=== PATIENT | male | born 1980 | race African-American/Black ===

== ENCOUNTER 2017-04-21 10:06 | Emergency (ER) | payer OTHER ==
[2017-04-21] MEDS ORDERED: ONDANSETRON ODT 4 MG TABLET TL STA (10:40)
[2017-04-21] MEDS ORDERED: ONDANSETRON ODT 4 MG TABLET ONE (10:50)
[2017-04-21 10:56] LABS: BASOPHILS % (AUTO) 0.6 %; EOSINOPHILS # (AUTO) 0.1 10^3/uL (0.0-0.7); EOSINOPHILS % (AUTO) 0.8 %; HCT - HEMATOCRIT 47.4 % (42.0-52.0); HGB - HEMOGLOBIN 15.9 g/dL (14.0-18.0); LYMPHOCYTES # (AUTO) 2.2 10^3/uL (1.5-3.5); MEAN CORPUSCULAR HEMOGLOBIN 28.8 pg (27.0-31.0); MEAN CORPUSCULAR HGB CONC 33.6 g/dL (32.0-36.0); MEAN CORPUSCULAR VOLUME 85.7 fL (80.0-94.0); MEAN PLATELET VOLUME 9.3 fL (7.4-11.4); MONOCYTES # (AUTO) 0.3 10^3/uL (0.0-1.0); NEUTROPHILS # (AUTO) 4.1 10^3/uL (1.5-6.6); NEUTROPHILS % (AUTO) 60.6 %; NUCLEATED RED BLOOD CELLS AUTO 0.1 /100WBC; RED BLOOD COUNT 5.52 10^6/uL (4.70-6.10); RED CELL DISTRIBUTION WIDTH 13.4 % (12.0-15.0); UNCORRECTED WHITE BLOOD COUNT 6.8 x10^3/uL; WHITE BLOOD COUNT 6.8 x10^3/uL (4.8-10.8)
[2017-04-21 11:08] LABS: ALBUMIN/GLOBULIN RATIO 1.4 (1.0-2.2); BILIRUBIN,TOTAL 0.9 mg/dL (0.2-1.0); CALCIUM 9.2 mg/dL (8.5-10.3); POTASSIUM 3.7 mmol/L (3.5-5.0); TOTAL PROTEIN 7.6 g/dL (6.7-8.2)
--- NOTE | 2017-04-21 11:28 | ED Physician Documentation ---
PD HPI ABD PAIN - Stated complaint Stated Complaint: VOMITTING, ABD PX, DIARRHEA - Chief complaint Chief Complaint: General - History obtained from History obtained from: Patient - History of Present Illness Timing - onset: Yesterday Timing - details: Still present Location: Epigastric Worsened by: Eating Associated symptoms: Nausea, Vomiting, Diarrhea, Other (Chills and myalgias.). No: Fever Similar symptoms before: Has not had sx before - Additional information Additional information: The patient is a 36-year-old male who presents with vomiting and watery diarrhea that started yesterday. He also reports upper abdominal discomfort, headache, chills, and myalgias. His symptoms are worse with food. He denies fever or dysuria. He denies history of similar symptoms in the past. His daughter was sick with similar symptoms 2 days ago, and she is now feeling better. Review of Systems Constitutional: reports: Chills, Myalgias. denies: Fever Nose: denies: Congestion Throat: denies: Sore throat Cardiac: denies: Chest pain / pressure Respiratory: denies: Dyspnea, Cough GI: reports: Abdominal Pain (epigastric), Nausea, Vomiting, Diarrhea : denies: Dysuria Skin: denies: Rash Musculoskeletal: denies: Back pain Neurologic: reports: Headache. denies: Focal weakness, Numbness PD PAST MEDICAL HISTORY - Past Medical History Past Medical History: No Endocrine/Autoimmune: None - Past Surgical History Past Surgical History: No - Present Medications Home Medications: Ambulatory Orders Medication Instructions Recorded Confirmed Promethazine [Phenergan] 25 - 50 mg PO Q6H PRN #10 tab 04/21/17 - Allergies Allergies/Adverse Reactions: Allergies Allergy/AdvReac Type Severity Reaction Status Date / Time No Known Drug Allergies Allergy Verified 04/21/17 10:17 - Social History Does the pt smoke?: Yes Smoking Status: Current every day smoker Does the pt drink ETOH?: No Does the pt have substance abuse?: No - Immunizations Immunizations are current?: Yes PD ED PE NORMAL - Vitals Vital signs reviewed: Yes (normal) - General General: Alert and oriented X 3, Well developed/nourished - HEENT HEENT: Atraumatic, EOMI, Ears normal, Moist mucous membranes, Pharynx benign - Neck Neck: Supple, no meningeal sign, No adenopathy, No JVD - Cardiac Cardiac: RRR, No murmur - Respiratory Respiratory: No respiratory distress, Clear bilaterally - Abdomen Abdomen: Normal bowel sounds, Soft, Non tender, No organomegaly - Back Back: No CVA TTP - Derm Derm: No rash - Extremities Extremities: No edema, No calf tenderness / cord - Neuro Neuro: Alert and oriented X 3, No motor deficit, Normal speech Results - Vitals Vitals: Oxygen O2 Source Room air - Labs Labs: Laboratory Tests 04/21/17 04/21/17 10:50 10:50 WBC 6.8 RBC 5.52 Hgb 15.9 Hct 47.4 MCV 85.7 MCH 28.8 MCHC 33.6 RDW 13.4 Plt Count 153 MPV 9.3 Neut # 4.1 Lymph # 2.2 [place] # 0.3 Eos # 0.1 Baso # 0.0 Absolute Nucleated RBC 0.01 Nucleated RBCs 0.1 Sodium 134 L Potassium 3.7 Chloride 101 Carbon Dioxide 25 Anion Gap 8.0 BUN 9 Creatinine 1.0 Estimated GFR (MDRD) 102 Glucose 117 H Calcium 9.2 Total Bilirubin 0.9 AST 36 ALT 42 Alkaline Phosphatase 60 Total Protein 7.6 Albumin 4.4 Globulin 3.2 Albumin/Globulin Ratio 1.4 Lipase 29 PD MEDICAL DECISION MAKING - ED course Complexity details: reviewed results, re-evaluated patient, considered differential, d/w patient ED course: The patient's presentation is most consistent with acute gastroenteritis. His presentation does not suggest invasive bacterial gastroenteritis, or a surgical abdomen. He does not appear dehydrated. Treatment in the emergency department included administration of Zofran 4 mg orally. He subsequently demonstrated the ability to drink fluids without recurrent nausea or vomiting. He is being discharged with a prescription for Phenergan. I discussed with him the expected course of illness, symptomatic treatment and outpatient follow-up, as well as potentially worrisome signs or symptoms that should prompt reevaluation in the emergency department. Departure - Departure Disposition: 01 Home, Self Care Clinical Impression: Gastroenteritis Condition: Stable Instructions: ED Gastroenteritis Viral Follow-Up: Carmine Navas MD [Physician No Access] - Prescriptions: Promethazine [Phenergan] 25 - 50 mg PO Q6H PRN #10 tab PRN Reason: Nausea / Vomiting Comments: Drink plenty of fluids. You can use Phenergan as prescribed if needed for nausea. Follow-up with your primary physician, or return to the emergency department, if you develop increasing abdominal pain, persistent vomiting, or otherwise worsening symptoms. Forms: Activity restrictions Discharge Date/Time: 04/21/17 11:48
[2017-04-21 11:48] VITALS: BP 122/71
== END 2017-04-21 11:48 | disposition home or self-care (01) ==
LOC: ED 10:06
DX: K52.9 Noninfective gastroenteritis and colitis, unspecified (principal); F17.200 Nicotine dependence, unspecified, uncomplicated
CPT/HCPCS: 36415; 80053; 83690; 85025; 99283; Q0162